=== PATIENT | male | born 1935 | race Caucasian/White ===

== ENCOUNTER 2017-03-08 19:41 | Emergency (ER) | payer OTHER ==
[~2017-03-08] VITALS: Ht 167.6 cm; Wt 86.3 kg
[~2017-03-08 19:41] MED LIST: ASPIR-LOW81 MG PO; ATENOLOL50 MG PO; LORAZEPAM0.5 MG PO; METFORMIN HCL1000 MG PO
[2017-03-08 23:08] VITALS: BP 181/80
== END 2017-03-08 23:09 | disposition home or self-care (01) ==
LOC: EME 19:41
DX: S80.11XA Contusion of right lower leg, initial encounter (principal); W22.8XXA Striking against or struck by other objects, initial encounter; I10 Essential (primary) hypertension; E11.9 Type 2 diabetes mellitus without complications; Z79.84 Long term (current) use of oral hypoglycemic drugs; Z87.891 Personal history of nicotine dependence
CPT/HCPCS: 73590; 99281; 99284